=== PATIENT | female | born 1985 | race Caucasian/White ===

== ENCOUNTER 2025-03-25 10:47 | Day surgery (SDC) | payer OTHER, SELFPAY ==
[2025-03-25 11:20] VITALS: BP 101/61; PULSE 75; RESP 17; TEMP 36.6; O2SAT 100
[2025-03-25] MEDS: LACTATED RINGERS 1,000 ML 42 ML IV (11:22)
--- NOTE | 2025-03-25 12:12 | PM.HP.IH.1 ---
History of Present Illness History of Present Illness Date Patient Seen: 03/25/25 Time Patient Seen: 12:12 Chief complaint: SDC Narrative: Gali is a 39-year-old woman who presents for a colonoscopy due to a family history of colon cancer and a personal history of rectal bleeding. See the telephone encounter note from January for details. PFSH Social History Smoking Status: Never smoker alcohol intake: current Meds Home Medications and Allergies Home Medications Medication Instructions Recorded Confirmed Type ferrous gluconate 324 mg (37.5 mg 324 mg PO DAILY 03/25/25 03/25/25 History iron) tablet metformin 1,000 mg tablet 1,000 mg PO BID 03/25/25 03/25/25 History tirzepatide 15 mg/0.5 mL 15 mg SUBCUT QWEEK 03/25/25 03/25/25 History subcutaneous pen injector Allergies Allergy/AdvReac Type Severity Reaction Status Date / Time No Known Drug Allergies Allergy Verified 03/25/25 11:10 Exam Vital Signs (past 8 hours): - 03/25/25 11:20 Temperature 97.9 F Pulse Rate 75 Respiratory Rate 17 Blood Pressure 101/61 Pulse Oximetry 100 Oxygen Delivery Method Room Air Oxygen Delivery Method Room Air Const General: healthy appearing Assessment & Plan Assessment and plan (1) Family history of colon cancer: Status: Acute Plan Colonoscopy Time-Based Coding :: [TOTAL MINUTES] spent with patient and on the chart (including review of chart, obtaining history, exam, reviewing outside data, placing orders, documenting exam and treatment plan, and counseling patient) on [DATE]. [employer] Document charge(s): No
[2025-03-25 12:32] VITALS: BP 100/57; PULSE 80; RESP 14; TEMP 36.9; O2SAT 100
--- NOTE | 2025-03-25 12:38 | PM.OP.COLON ---
Operative Date/Time/Diagnoses Date of procedure: 03/25/25 Time of procedure: 12:38 Pre-op diagnosis: Family history of colon cancer Post-op diagnosis: same Procedure & Clinicians Study performed: Colonoscopy Same procedure as scheduled: Yes Surgeon: Candido Elizabeth Procedure Notes Procedure in detail: Surgeon: Candido Elizabeth MD Anesthesia: Anali Barlow CRNA Procedure: The patient was brought to the endoscopy suite, placed in left lateral decubitus position. The patient was connected to monitoring devices. A time-out was performed. Sedation was administered. Once the patient was adequately sedated, a digital rectal exam was performed and was normal. The scope was then inserted and advanced to the cecum where the appendiceal orifice was identified and photographed. The scope was then slowly withdrawn over greater than 6 minutes. The mucosa was thoroughly inspected. No abnormalities were identified. The scope was retroflexed in the rectum. Mild internal hemorrhoids were noted. The scope was straightened and removed. The patient was awakened and brought to recovery. Scope withdrawal time: 9 minutes Sedation time: 23 minutes EBL: 0 Findings: Normal colon Post-procedure Recommendations: Colonoscopy in 5 years Disposition: PACU
[2025-03-25 12:48] VITALS: BP 111/64; PULSE 75; RESP 16; TEMP 36.9; O2SAT 100
== END 2025-03-25 12:52 | disposition home or self-care (01) ==
PROVIDERS: Referring Provider Surgery; Visit Provider Surgery
PROC: 0DJD8ZZ Inspection of Lower Intestinal Tract, Via Natural or Artificial Opening Endoscopic (ICD-10-PCS; CPT 45378; principal; 2025-03-25 12:30)
DX: Z12.11 Encounter for screening for malignant neoplasm of colon (principal); Z80.0 Family history of malignant neoplasm of digestive organs; K64.8 Other hemorrhoids
CPT/HCPCS: 45378; J2704